=== PATIENT | female | born 1985 | race Two or more races ===

== ENCOUNTER 2021-02-04 00:16 | Emergency (ER) | payer BC ==
[~2021-02-04] VITALS: Ht 165.1 cm; Wt 49.0 kg
[2021-02-04] MEDS ORDERED: KETO10TA2 PO (03:49)
== END 2021-02-04 03:53 | disposition home or self-care (01) ==
LOC: ER 00:16
DX: S93.402A Sprain of unspecified ligament of left ankle, initial encounter (principal); X58.XXXA Exposure to other specified factors, initial encounter; Y92.89 Other specified places as the place of occurrence of the external cause